=== PATIENT | female | born 1990 | race Caucasian/White ===

== ENCOUNTER 2016-09-07 11:41 | Emergency (ER) | payer OTHER ==
[~2016-09-07] VITALS: Ht 152.4 cm; Wt 44.5 kg
[2016-09-07] MEDS ORDERED: FENTANYL CITRATE 100 MCG/2 ML AMPUL IV ONE ×3 (11:45→13:15)
[2016-09-07] MEDS ORDERED: MIDAZOLAM HCL 2 MG/2 ML VIAL IV ONE ×2 (11:45→13:15)
--- NOTE | 2016-09-07 11:45 | NUR ---
Dr. Byers spoke with the pt about moderate sedation.
--- NOTE | 2016-09-07 11:50 | NUR ---
Moderate sedation started. Dr Byers, myself, Bin RN, Day RN, Dago CHARTER [employer] DRIVER and Stuart TECH[employer]Y TRAINING ASSOCIATE at bedside. Please see written moderate sedation record for further information.
--- NOTE | 2016-09-07 11:50 | NUR ---
Pt signed consent for moderate sedation, translating.
[2016-09-07] MEDS ORDERED: FENTANYL CITRATE 100 MCG/2 ML AMPUL ONE ×4 (12:04→13:12)
[2016-09-07] MEDS ORDERED: MIDAZOLAM HCL 5 MG/ML VIAL ONE ×3 (12:04→13:12)
--- NOTE | 2016-09-07 12:40 | NUR ---
Dr. Holloway in to see pt.
--- NOTE | 2016-09-07 13:08 | NUR ---
Plaster splint placed to E by Dr. Holloway.
--- NOTE | 2016-09-07 13:08 | NUR ---
Leonel silva in [facility] - 09/07/16 at 1328 by MITCHELL Plaster cast to [facility] by Dr. Holloway.
--- NOTE | 2016-09-07 14:00 | NUR ---
Pt is a/o x 4, resting in gurney with NAD noted at this time. Boyfriend and friends at bedside.
--- NOTE | 2016-09-07 14:45 | NUR ---
IV removed. Catheter intact and site benign. Pressure and 4x4 gauze applied to site. No bleeding noted.
--- NOTE | 2016-09-07 14:50 | NUR ---
Patient discharged to home in stable conditon with boyfriend and friends. Written and verbal after care instructions given. Patient verbalizes understanding of instructions. Pt and her boyfriend were given extensive ACI by , and myself regarding follow-up.
== END 2016-09-07 15:03 | disposition home or self-care (01) ==
LOC: ER 11:41
DX: S82.892A Other fracture of left lower leg, initial encounter for closed fracture (principal); Z88.0 Allergy status to penicillin; X50.9XXA Other and unspecified overexertion or strenuous movements or postures, initial encounter; Y93.89 Activity, other specified; Y92.9 Unspecified place or not applicable; Y99.9 Unspecified external cause status
CPT/HCPCS: 73600; 73610; A4663; J2250; J3010; J7040

== ENCOUNTER 2016-09-10 11:28 | Emergency (ER) | payer OTHER ==
[~2016-09-10] VITALS: Ht 152.4 cm; Wt 54.4 kg
--- NOTE | 2016-09-10 12:58 | NUR ---
Patient discharged to home in stable conditon. Written and verbal after care instructions given. Patient verbalizes understanding of instructions. Pt's friend translating, stressed follow up.
== END 2016-09-10 13:16 | disposition home or self-care (01) ==
LOC: ER 11:28
DX: S82.842G Displaced bimalleolar fracture of left lower leg, subsequent encounter for closed fracture with delayed healing (principal); Z88.0 Allergy status to penicillin; Z88.6 Allergy status to analgesic agent; F17.200 Nicotine dependence, unspecified, uncomplicated; X58.XXXD Exposure to other specified factors, subsequent encounter
CPT/HCPCS: 99283; A4663